=== PATIENT | male | born 1965 | race Caucasian/White ===

== ENCOUNTER 2018-11-07 02:45 | Outpatient (CLI) | payer BC, SELFPAY ==
[2018-11-07 11:27] LABS: Cholesterol 267 mg/dL (50-200); Glucose 99 mg/dL (70-100); HDL Cholesterol 35 mg/dL (40-60); LDL CHOLESTEROL 142 mg/dL (<100); Triglyceride 387 mg/dL (30-150)
== END 2018-11-07 03:05 ==
PROVIDERS: PCP Family Medicine; Visit Provider Family Medicine
DX: Z00.00 Encounter for general adult medical examination without abnormal findings (principal); Z13.220 Encounter for screening for lipoid disorders; Z13.1 Encounter for screening for diabetes mellitus
CPT/HCPCS: 36415; 80061; 82947; 83721

== ENCOUNTER 2020-02-11 11:21 | Outpatient (CLI) | payer BC, SELFPAY ==
[2020-02-13 17:33] LABS: SARS-CoV-2 RNA Undetected (Undetected); SARS-CoV-2 Specimen Source Nasopharynx
== END 2020-02-11 11:41 ==
PROVIDERS: PCP Family Medicine; Visit Provider Family Medicine
DX: Z11.59 Encounter for screening for other viral diseases (principal)
CPT/HCPCS: U0003

== ENCOUNTER 2020-08-06 11:42 | Outpatient (CLI) | payer BC, SELFPAY ==
[2020-08-06 13:19] LABS: Calculated LDL 155 mg/dL (<100); Cholesterol 255 mg/dL (<200); Glucose 96 mg/dL (74-106); HDL Cholesterol 39 mg/dL (40-60); Triglyceride 309 mg/dL (<150)
== END 2020-08-06 11:43 | disposition home or self-care (01) ==
LOC: LOS 11:43
PROVIDERS: PCP Family Medicine; Visit Provider Family Medicine
DX: E78.5 Hyperlipidemia, unspecified (principal); R73.9 Hyperglycemia, unspecified; Z12.5 Encounter for screening for malignant neoplasm of prostate
CPT/HCPCS: 36415; 80061; 82947; 84153

== ENCOUNTER 2021-02-25 16:36 | Outpatient (REF) | payer BC, SELFPAY ==
[2021-02-27 17:34] LABS: COVID-19 RT-PCR UVMMC Result Negative (Negative)
== END 2021-02-25 16:37 | disposition home or self-care (01) ==
LOC: LBN 16:36
PROVIDERS: PCP Family Medicine; Visit Provider Nurse Practitioner Family
DX: Z20.822 Contact with and (suspected) exposure to COVID-19 (principal); J06.9 Acute upper respiratory infection, unspecified
CPT/HCPCS: U0003

== ENCOUNTER 2022-04-13 02:51 | Outpatient (CLI) | payer BC, SELFPAY ==
[2022-04-13 14:02] LABS: Cholesterol 275 mg/dL (<200); HDL Cholesterol 35 mg/dL (40-60); Triglyceride 428 mg/dL (<150)
[2022-04-13 14:13] LABS: LDL CHOLESTEROL 152 mg/dL (<100)
== END 2022-04-13 02:52 | disposition home or self-care (01) ==
PROVIDERS: PCP Family Medicine; Visit Provider Family Medicine
DX: E78.5 Hyperlipidemia, unspecified (principal)
CPT/HCPCS: 36415; 80061; 83721

== ENCOUNTER 2023-09-26 05:19 | Outpatient (CLI) | payer BC, SELFPAY ==
[2023-09-26 11:17] LABS: Calculated LDL 157 mg/dL (<100); Cholesterol 235 mg/dL (<200); Glucose 125 mg/dL (74-106); HDL Cholesterol 48 mg/dL (40-60); Triglyceride 153 mg/dL (<150)
[2023-09-26 18:37] LABS: PSA, Screening 1.4 ng/mL (<=3.5)
== END 2023-09-26 05:20 | disposition home or self-care (01) ==
LOC: LOS 05:19
PROVIDERS: PCP Family Medicine; Visit Provider Family Medicine
DX: R73.9 Hyperglycemia, unspecified (principal); Z12.5 Encounter for screening for malignant neoplasm of prostate; E78.5 Hyperlipidemia, unspecified
CPT/HCPCS: 36415; 80061; 82947; 84153

== ENCOUNTER 2024-10-02 10:17 | Outpatient (CLI) | payer OTHER, SELFPAY ==
[2024-10-02 12:47] LABS: Hemoglobin A1C 6.2 % (<5.7)
[2024-10-02 12:51] LABS: Calculated LDL 146 mg/dL (<100); Cholesterol 220 mg/dL (<200); HDL Cholesterol 54 mg/dL (>or=40); Triglyceride 101 mg/dL (<150)
== END 2024-10-02 10:18 | disposition home or self-care (01) ==
LOC: LOS 10:17
PROVIDERS: PCP Family Medicine; Referring Provider Family Medicine; Visit Provider Family Medicine
DX: E78.5 Hyperlipidemia, unspecified (principal); R73.9 Hyperglycemia, unspecified
CPT/HCPCS: 36415; 80061; 83036